=== PATIENT | female | born 1975 | race Caucasian/White ===

== ENCOUNTER → 2017-11-12 | Outpatient (REF) | payer BC | LOC: M SFHCLERA 19:08 | DX: J02.9 Acute pharyngitis, unspecified (principal) ==

== ENCOUNTER 2019-01-23 19:14 | Emergency (ER) | payer BC ==
[~2019-01-23] VITALS: Ht 165.1 cm; Wt 86.4 kg
[2019-01-23] MEDS ORDERED: NORCO, ANEXSIA 5/325MG TABLET (HYDROcodone/ACETAMINOPHEN) PO ONE (20:00)
[2019-01-23 21:40] VITALS: BP 128/70
--- NOTE | 2019-01-24 09:22 | REP ---
LEFT ANKLE, COMPLETE: 01/23/2019. COMPARISON: Left foot series today. CLINICAL HISTORY: Trauma, fell. FINDINGS: The four views show the mortise joint symmetric and preserved. Talar dome shows no osteochondral defect. Some mild soft-tissue swelling about the ankle anteriorly and laterally. Distal tibia and fibula without fracture or avulsion evident. There are no heel spurs. Subtalar joints are intact. Small bone island in the anterior process of the talus. Talonavicular and calcaneocuboid joints appear normal. Visualized tarsal and metatarsal bones are intact. IMPRESSION: 1. Negative left ankle series for fracture. No acute bony finding. Minor soft tissue swelling evident. Electronically Signed by Kingston Baker MD 01/24/2019 07:44 P
--- NOTE | 2019-01-24 09:24 | REP ---
LEFT FOOT COMPLETE: 01/23/2019. COMPARISON: Left ankle this date. CLINICAL HISTORY: Trauma, patient fell. Pain dorsally in the foot. FINDINGS: The lateral view shows no evidence of heel spurs. Subtalar joints intact. Talonavicular and calcaneocuboid joints are normal. Distal tibia and fibula seen were grossly intact. There is some minor swelling anterior to the ankle. Tarsal bones show grossly normal articulations with each other and the metatarsals. Despite pain on top of the foot, I cannot define any definite Lisfranc joint injury. There is very little swelling over the midfoot. Metatarsals are without evidence of fracture or focal lesion. The MTP and IP joints are intact. Phalanges intact. IMPRESSION: 1. Minor soft tissue swelling about the ankle, but no definite fracture of the foot. If pain in the dorsal midfoot persists, followup with orthopedics. Electronically Signed by Kingston Baker MD 01/24/2019 07:44 P
--- NOTE | 2019-01-26 15:50 | ED PDOC ---
Post-Departure Follow-Up dr ritter faxed formal report of left foot film for fu Breezy Guzman MD Jan 26, 2019 15:50
== END 2019-01-23 21:44 | disposition home or self-care (01) ==
LOC: M ED 19:14
DX: S93.402A Sprain of unspecified ligament of left ankle, initial encounter (principal); X50.9XXA Other and unspecified overexertion or strenuous movements or postures, initial encounter; Y92.018 Other place in single-family (private) house as the place of occurrence of the external cause; F17.200 Nicotine dependence, unspecified, uncomplicated

== ENCOUNTER → 2019-04-20 | Outpatient (REF) | payer BC | LOC: M SFHCLERA 13:04 | PROVIDERS: ATTEND Nurse Practitioner Family | DX: R53.81 Other malaise (principal) ==

== ENCOUNTER 2020-05-06 11:22 | Emergency (ER) | payer BC ==
[~2020-05-06] VITALS: Ht 165.1 cm; Wt 88.4 kg
[2020-05-06 12:06] LABS: BASO % 0.6 % (0.0-1.0); EOS # 0.1 10^3/uL (0.0-0.5); EOS % 1.6 % (0.0-3.0); HEMATOCRIT 40.7 % (36.0-47.0); HEMOGLOBIN 13.8 g/dl (12.0-15.5); LYMPH # 1.8 10^3/uL (1.5-5.0); LYMPH % 25.3 % (24.0-44.0); MEAN CORPUSCULAR HGB CONC 33.9 g/dl (32.0-36.5); MEAN CORPUSCULAR VOLUME 88.5 fl (80.0-96.0); MONO # 0.4 10^3/uL (0.0-0.8); MONO % 5.8 % (2.0-8.0); NEUTROPHILS # 4.7 10^3/uL (1.5-8.5); NEUTROPHILS % 66.3 % (36.0-66.0); PLATELET COUNT, AUTOMATED 377 10^3/uL (150-450)
[2020-05-06 12:16] LABS: INR 0.92; PARTIAL THROMBOPLASTIN TIME 33.9 SECONDS (24.2-38.5); PROTHROMBIN TIME 12.6 SECONDS (12.5-14.3)
[2020-05-06 12:40] LABS: HCG, SERUM QUALITATIVE NEGATIVE (NEGATIVE)
[2020-05-06 12:42] LABS: ALT/SGPT 25 U/L (12-78); BILIRUBIN,DIRECT < 0.1 MG/DL (0.0-0.2); BILIRUBIN,TOTAL 0.3 MG/DL (0.2-1.0); BLOOD UREA NITROGEN 22 MG/DL (7-18); CALCIUM LEVEL 9.1 MG/DL (8.5-10.1); CARBON DIOXIDE LEVEL 23 MEQ/L (21-32); CHLORIDE LEVEL 109 MEQ/L (98-107); CK-MB VALUE MASS 1.7 NG/ML (<3.6); CPK CREATINE PHOSPHOKINASE 161 U/L (26-192); CREATININE FOR GFR 0.71 MG/DL (0.55-1.30); FREE T4 0.95 NG/DL (0.76-1.46); GLOMERULAR FILTRATION RATE > 60.0 (>58); GLUCOSE, FASTING 107 MG/DL (70-100); LIPASE 163 U/L (73-393); MB/CK RELATIVE INDEX 1.06 (< OR =4); POTASSIUM SERUM 4.1 MEQ/L (3.5-5.1); SODIUM LEVEL 139 MEQ/L (136-145); THYROID STIMULATING HORMONE 0.429 uIU/ML (0.358-3.740); TOTAL PROTEIN 7.5 GM/DL (6.4-8.2); TROPONIN I < 0.02 NG/ML (< 0.10)
--- NOTE | 2020-05-06 13:38 | REP ---
INDICATION: CHEST PAIN. COMPARISON: . TECHNIQUE: Portable AP chest with the patient upright. FINDINGS: The lung lopez are clear. Cardiac size is normal. The cam, mediastinum and skeletal structures are unremarkable. IMPRESSION: Essentially negative portable chest <Electronically signed by Evan Bhatia > 05/06/20 [id number]
[2020-05-06 14:16] LABS: CK-MB VALUE MASS 1.5 NG/ML (<3.6); CPK CREATINE PHOSPHOKINASE 159 U/L (26-192); MB/CK RELATIVE INDEX 0.94 (< OR =4); TROPONIN I < 0.02 NG/ML (< 0.10)
[2020-05-06] MEDS ORDERED: KETOROLAC 30 MG/ML 1ML VIAL IV ONE (15:40)
[2020-05-06] MEDS ORDERED: KETO10TAB PO (16:47)
[2020-05-06 17:15] VITALS: BP 140/65
--- NOTE | 2020-05-08 07:58 | ECGEPIP ---
[facility] - ED Test Date: 2020-05-06 Pat Name: JESSICA BARNES Department: Room: - Gender: Female Medical Registrar: KAMALA Moreno : 1975 Requested By: JOSE Cruz Order Number: [id number] Reading MD: Jenny Baca Measurements Intervals [place] Rate: 64 P: 50 WI: 136 QRS: -17 QRSD: 92 T: 38 QT: 388 QTc: 400 Interpretive Statements Normal sinus rhythm Incomplete right bundle branch block no prior Electronically Signed on 05-08-2020 7:58:34 EDT by Jenny Baca
--- NOTE | 2020-05-08 08:03 | ECGEPIP ---
[facility] - ED Test Date: 2020-05-06 Pat Name: JESSICA BARNES Department: Room: - Gender: Female [place]: RS : 1975 Requested By: JOSE Cruz Order Number: [id number] Reading MD: Jenny Baca Measurements Intervals [place] Rate: 51 P: 45 FL: 136 QRS: -19 QRSD: 90 T: 28 QT: 438 QTc: 403 Interpretive Statements Sinus bradycardia decreased rate 05/06/20 Electronically Signed on 05-08-2020 8:02:58 EDT by Jenny Baca
== END 2020-05-06 17:35 | disposition home or self-care (01) ==
LOC: M ED 11:22
DX: R07.89 Other chest pain (principal); Z77.098 Contact with and (suspected) exposure to other hazardous, chiefly nonmedicinal, chemicals
CPT/HCPCS: 71045; 80048; 80076; 82550; 82553; 83690; 84439; 84443; 84484; 84703; 85025; 85610; 85730; 93005; 93041; 94760; 96374; 99285; J1885

== ENCOUNTER → 2020-10-16 | Outpatient (REF) | payer BC ==
[~2020-10-16] MED LIST: KETO10TAB PO
== END ==
LOC: M LAB REF 19:04
PROVIDERS: ATTEND Physician Assistant
DX: J02.9 Acute pharyngitis, unspecified (principal)

== ENCOUNTER → 2020-12-15 | Outpatient (CLI) | payer BC ==
--- NOTE | 2020-12-15 15:44 | REP ---
INDICATION: SHORTNESS OF BREATH. COMPARISON: 05/06/2020 a portable exam TECHNIQUE: PA and lateral views FINDINGS: The cardiomediastinal silhouette is stable. The heart is not enlarged. Since the last examination, bilateral patchy airspace and interstitial opacities have developed particularly in the mid and lower lung zones. The pleural angles remain sharp. The osseous structures are stable and intact. IMPRESSION: Interstitial and airspace opacities consistent with pneumonia as described above. <Electronically signed by Matt Doan > 12/15/20 [id number]
== END ==
LOC: M WUC 14:41
PROVIDERS: ATTEND Physician Assistant
DX: R06.02 Shortness of breath (principal); R91.8 Other nonspecific abnormal finding of lung field

== ENCOUNTER → 2023-02-13 | Outpatient (REF) | payer BC ==
[2023-02-13 19:56] LABS: RSV AMPLIFICATION NEGATIVE (NEGATIVE)
== END ==
LOC: M LAB REF 18:19
PROVIDERS: ATTEND Physician Assistant
DX: J06.9 Acute upper respiratory infection, unspecified (principal); Z20.828 Contact with and (suspected) exposure to other viral communicable diseases

== ENCOUNTER → 2023-07-25 | Outpatient (CLI) | payer BC | LOC: M RAD 16:30 | PROVIDERS: ATTEND Physician Assistant Medical | DX: R51.9 Headache, unspecified (principal); G89.29 Other chronic pain ==

== ENCOUNTER 2023-09-05 09:04 | Emergency (ER) | payer BC ==
[~2023-09-05] VITALS: Ht 165.1 cm; Wt 75.5 kg
[2023-09-05 09:42] LABS: BASO % 0.5 % (0.0-1.0); EOS # 0.1 10^3/uL (0.0-0.5); HEMATOCRIT 40.9 % (36.0-47.0); HEMOGLOBIN 13.9 g/dl (12.0-15.5); LYMPH # 1.5 10^3/uL (1.5-5.0); LYMPH % 25.4 % (24.0-44.0); MEAN CORPUSCULAR HEMOGLOBIN 31.5 pg (27.0-33.0); MEAN CORPUSCULAR VOLUME 92.7 fl (80.0-96.0); MONO # 0.4 10^3/uL (0.0-0.8); MONO % 6.6 % (2.0-8.0); NEUTROPHILS # 3.8 10^3/uL (1.5-8.5); NEUTROPHILS % 65.2 % (36.0-66.0); PLATELET COUNT, AUTOMATED 294 10^3/uL (150-450); RED BLOOD COUNT 4.41 10^6/uL (4.00-5.40); WHITE BLOOD COUNT 5.9 10^3/uL (4.0-10.0)
[2023-09-05 09:55] LABS: INR 1.06; PROTHROMBIN TIME 13.5 SECONDS (12.5-14.5)
[2023-09-05 10:12] LABS: CK-MB VALUE MASS 2.2 NG/ML (<3.6)
[2023-09-05 10:14] LABS: BLOOD UREA NITROGEN 10 MG/DL (9-23); CALCIUM LEVEL 9.2 MG/DL (8.5-10.1); CARBON DIOXIDE LEVEL 24 MMOL/L (20-31); CHLORIDE LEVEL 112 MMOL/L (98-107); CPK CREATINE PHOSPHOKINASE 192 U/L (34-145); CREATININE FOR GFR 0.72 MG/DL (0.55-1.30); GLOMERULAR FILTRATION RATE > 60.0 (>58); GLUCOSE, FASTING 105 MG/DL (60-100); MAGNESIUM LEVEL 2.1 MG/DL (1.8-2.4); MB/CK RELATIVE INDEX 1.14 (< OR =4); POTASSIUM SERUM 3.6 MMOL/L (3.5-5.1); SODIUM LEVEL 142 MMOL/L (136-145)
[2023-09-05 10:16] LABS: FREE T4 1.02 NG/DL (0.89-1.76); THYROID STIMULATING HORMONE 0.919 uIU/ML (0.55-4.78)
[2023-09-05] MEDS ORDERED: ISOVUE-370 76% 100ML VIAL As Ordered ONE (10:17)
[2023-09-05 11:16] LABS: CK-MB VALUE MASS 1.8 NG/ML (<3.6)
[2023-09-05 11:17] LABS: CPK CREATINE PHOSPHOKINASE 173 U/L (34-145); MB/CK RELATIVE INDEX 1.04 (< OR =4)
[2023-09-05] MEDS ORDERED: MELO15TA28 PO (11:58)
[2023-09-05] MEDS ORDERED: HOME MED LIST COMPLETE! XX SCH (12:00)
[2023-09-05] MEDS ORDERED: HOLTER MONITOR XX (12:50)
[2023-09-05 13:43] VITALS: BP 108/62; TEMP 97.6; O2SAT 99
== END 2023-09-05 13:53 | disposition home or self-care (01) ==
LOC: M ED 09:04 → EDBD 09:04 → M ED 13:53
DX: R55 Syncope and collapse (principal); R91.1 Solitary pulmonary nodule; R00.1 Bradycardia, unspecified; I45.10 Unspecified right bundle-branch block; F17.200 Nicotine dependence, unspecified, uncomplicated; F10.10 Alcohol abuse, uncomplicated; Z79.899 Other long term (current) drug therapy
CPT/HCPCS: 36415; 71045; 71275; 80048; 82550; 82553; 83735; 84439; 84443; 84484; 85025; 85610; 93005; 93041; 94760; 99285; Q9967